=== PATIENT | female | born 1995 ===

== ENCOUNTER 2017-11-24 12:19 | Emergency (ER) | payer OTHER ==
[~2017-11-24] VITALS: Ht 170.2 cm; Wt 72.1 kg
[2017-11-24] MEDS ORDERED: IBUPROFEN800 MG PO (14:51)
== END 2017-11-24 15:12 | disposition home or self-care (01) ==
LOC: ER 12:19
DX: R07.89 Other chest pain (principal)

== ENCOUNTER 2019-01-07 14:00 | Emergency (ER) | payer OTHER ==
[~2019-01-07] VITALS: Ht 170.2 cm; Wt 74.8 kg
[~2019-01-07 14:00] MED LIST: IBUPROFEN800 MG PO
== END 2019-01-07 21:01 | disposition home or self-care (01) ==
LOC: ER 14:00
DX: N83.291 Other ovarian cyst, right side (principal); R10.31 Right lower quadrant pain